=== PATIENT | female | born 1980 | race Two or more races ===

== ENCOUNTER 2019-10-14 16:48 | Observation (INO) | payer MEDICAID ==
[~2019-10-14] VITALS: Ht 157.5 cm; Wt 74.8 kg
[2019-10-14 17:58] LABS: CLARITY URINE CLEAR (CLEAR); COLOR URINE YELLOW (YELLOW); KETONES URINE 4+ (NEGATIVE); LEUKOCYTE ESTERASE URINE 1+ (NEGATIVE); NITRITE URINE NEGATIVE (NEGATIVE); OCCULT BLOOD URINE NEGATIVE (NEGATIVE); PH URINE 6.5 (4.5-8.0); PROTEIN URINE TRACE (NEGATIVE)
[2019-10-14] MEDS ORDERED: TERBUTALINE SULFATE 1MG/ML VIAL SUBCUT PRN (20:00)
[2019-10-14] MEDS ORDERED: DEXT 5%/LACTATED RINGERS 1,000 ML IV ONE (20:00)
[2019-10-14] MEDS ORDERED: BETAMETHASONE ACET/BETAMET 30 MG/5 ML VIAL IM ONE (20:00)
[2019-10-14] MEDS ORDERED: ONDANSETRON HCL 4MG/2ML INJ IV ONE (20:15)
[2019-10-15] MEDS ORDERED: PNV1TABL76 MT (15:54)
== END 2019-10-14 22:08 | disposition home or self-care (01) ==
LOC: 8 EST LDRP 16:48
PROVIDERS: ADMIT Obstetrics & Gynecology; ATTEND Obstetrics & Gynecology
DX: O21.2 Late vomiting of pregnancy (principal); O26.893 Other specified pregnancy related conditions, third trimester; O62.9 Abnormality of forces of labor, unspecified; R10.30 Lower abdominal pain, unspecified; Z3A.28 28 weeks gestation of pregnancy
CPT/HCPCS: 76805; 76818; 81003; 96360; 96361; 96372; 99281; G0378; J0702; J3105

== ENCOUNTER 2019-10-15 14:37 | Observation (INO) | payer MEDICAID ==
[~2019-10-15] VITALS: Ht 157.5 cm; Wt 74.8 kg
[2019-10-15] MEDS ORDERED: PNV1TABL76 MT (15:54)
[2019-10-15 17:24] LABS: CLARITY URINE CLEAR (CLEAR); COLOR URINE YELLOW (YELLOW); KETONES URINE 3+ (NEGATIVE); LEUKOCYTE ESTERASE URINE 1+ (NEGATIVE); NITRITE URINE NEGATIVE (NEGATIVE); OCCULT BLOOD URINE NEGATIVE (NEGATIVE); PROTEIN URINE NEGATIVE (NEGATIVE); SPECIFIC GRAVITY URINE 1.007 (1.005-1.030); UROBILINOGEN URINE 0.2 E.U./dL (0.2-1.0)
[2019-10-15] MEDS ORDERED: LACTATED RINGERS 1,000 ML IV SCH (18:15)
[2019-10-15] MEDS ORDERED: CEFAZOLIN 1000MG PREMIX 50 ML IV ONE (18:15)
[2019-10-15] MEDS ORDERED: BETAMETHASONE ACET/BETAMET 30 MG/5 ML VIAL IM SCH (20:15)
[2019-10-16] MEDS ORDERED: LACTATED RINGERS 1,000 ML IV SCH (19:15)
== END 2019-10-15 21:20 | disposition home or self-care (01) ==
LOC: 8 EST LDRP 14:37
PROVIDERS: ADMIT Obstetrics & Gynecology; ATTEND Obstetrics & Gynecology
DX: O36.8130 Decreased fetal movements, third trimester, not applicable or unspecified (principal); Z3A.28 28 weeks gestation of pregnancy
CPT/HCPCS: 81003; 96372; 99281; G0378; 96360; 96361